=== PATIENT | male | born 1945 | race Caucasian/White ===

== ENCOUNTER → 2016-09-14 | Outpatient (CLI) | payer OTHER ==
--- NOTE | 2016-09-14 10:19 | REP ---
LUMBOSACRAL SPINE SERIES: Six views lumbosacral spine performed. There is no compression fracture. There is normal lumbar lordosis with no spondylolysis or spondylolisthesis. There is mild to moderate diffuse spurring. There is mild disc space narrowing and subchondral sclerosis at L1-2 and L3-4 as well as L4-5. There is diffuse sclerosis at the posterior facet joints with facet joint spurring at L4-5 and L5-S1. The posterior elements are intact. There is slight curvature toward the right. IMPRESSION: Diffuse degenerative changes. No fracture or dislocation. Signed by Juwan Bartholomew MD 09/14/2016 03:14 P
== END ==
LOC: M RAD 08:45
PROVIDERS: ATTEND Surgery
DX: M51.26 Other intervertebral disc displacement, lumbar region (principal)

== ENCOUNTER 2017-02-24 13:25 | Emergency (ER) | payer OTHER ==
[~2017-02-24] VITALS: Ht 177.8 cm; Wt 90.9 kg
[2017-02-24] MEDS ORDERED: NS 1,000 ML IV SCH (13:58)
[2017-02-24] MEDS ORDERED: MECLIZINE 25 MG TABLET PO ONE (14:00)
--- NOTE | 2017-02-24 14:21 | REP ---
CT Head without contrast HISTORY: Altered mental status COMPARISON: None An area of decreased attenuation is present in the left basal ganglia. This represents an old lacunar infarction. Areas of decreased attenuation are present in the periventricular white matter. This represents small-vessel ischemic disease. There is no intraparenchymal hemorrhage, acute infarct, mass or midline shift. The ventricular system and cortical sulci are dilated consistent with mild volume loss. There is no extra cerebral collection. There is no fracture. The visualized sinuses are clear. IMPRESSION: 1. Old left basal ganglia lacunar infarction. 2. Small vessel ischemic disease per 3. Mild volume loss. Signed by Kedar Whaley MD 02/24/2017 02:12 P
[2017-02-24 14:29] LABS: BASO % 0.2 % (0.0-1.0); EOS % 0.3 % (0.0-3.0); IMMATURE GRANULOCYTE % 0.2 % (0-0); LYMPH # 1.2 10^3/uL (1.5-4.5); LYMPH % 13.2 % (24.0-44.0); MEAN CORPUSCULAR HEMOGLOBIN 31.4 pg (27.0-33.0); MEAN CORPUSCULAR HGB CONC 34.4 g/dl (32.0-36.5); MEAN CORPUSCULAR VOLUME 91.3 fl (80.0-96.0); MONO # 0.5 10^3/uL (0.0-0.8); MONO % 5.4 % (0.0-5.0); NEUTROPHILS # 7.5 10^3/uL (1.8-7.7); NEUTROPHILS % 80.7 % (36.0-66.0); PLATELET COUNT, AUTOMATED 147 10^3/uL (150-450); RED CELL DISTRIBUTION WIDTH 12.4 % (11.5-14.5); WHITE BLOOD COUNT 9.3 10^3/uL (4.0-10.0)
[2017-02-24 14:57] LABS: ALBUMIN 4.1 GM/DL (3.2-5.2); ALBUMIN/GLOBULIN RATIO 1.28 (1.00-1.93); ALKALINE PHOSPHATASE 80 U/L (45-117); ALT/SGPT 19 U/L (12-78); ANION GAP 7 MEQ/L (8-16); AST/SGOT 16 U/L (7-37); BILIRUBIN,DIRECT 0.2 MG/DL (0.0-0.2); BILIRUBIN,TOTAL 0.7 MG/DL (0.2-1.0); BLOOD UREA NITROGEN 13 MG/DL (7-18); CALCIUM LEVEL 8.5 MG/DL (8.8-10.2); CARBON DIOXIDE LEVEL 27 MEQ/L (21-32); CHLORIDE LEVEL 109 MEQ/L (98-107); CREATININE FOR GFR 0.92 MG/DL (0.70-1.30); GLOMERULAR FILTRATION RATE > 60.0 (>42); GLUCOSE, FASTING 115 MG/DL (83-110); POTASSIUM SERUM 4.5 MEQ/L (3.5-5.1); SODIUM LEVEL 143 MEQ/L (136-145); TOTAL PROTEIN 7.3 GM/DL (6.4-8.2)
[2017-02-24 15:55] LABS: METHADONE URINE NEGATIVE (NEGATIVE)
[2017-02-24] MEDS ORDERED: MECL-68 PO ×2 (16:11→17:22)
[2017-02-24 17:22] VITALS: BP 159/74
== END 2017-02-24 17:23 | disposition home or self-care (01) ==
LOC: M ED 13:25
DX: H83.09 Labyrinthitis, unspecified ear (principal)
CPT/HCPCS: 70450; 80048; 80076; 80307; 82550; 82553; 84443; 85025; 99284; G0480

== ENCOUNTER → 2017-03-19 | Outpatient (CLI) | payer OTHER ==
[~2017-03-19] MED LIST: MECL-68 PO
--- NOTE | 2017-03-19 10:42 | REP ---
Clinical: Preoperative assessment . Comparison: None . Technique: PA and lateral. Findings: The mediastinum and cardiac silhouette are normal. Airway is patent and midline. The lung cheek are clear and without acute consolidation, effusion, or pneumothorax. The skeletal structures are intact and normal. Impression: 1. No acute cardiopulmonary process. Signed by Marshal Chen MD 03/19/2017 10:34 A
== END ==
LOC: M RAD 09:12
PROVIDERS: ATTEND Surgery
DX: Z01.818 Encounter for other preprocedural examination (principal)